=== PATIENT | male | born 1940 | race Hispanic/Latino ===

== ENCOUNTER → 2017-07-16 | Outpatient (CLI) | payer OTHER, MEDICARE ==
[~2017-07-16] MED LIST: ACET1TAB12 PO; CHLO25CA5 PO; ENOX40DI8 SQ; ERTA1VIA IV; FAMO-136 PO; FOLI1TAB15 PO; GUAIFDM PO; GUAIFDM120 PO; HYOS-28 PO; IPRA3AMP24 IH; LACT10SO PO; LIB25 PO; Lactulose PO; MAAL30 PO; MULT-1192 PO; MVIT PO; ONDA4TAB4 PO; THIA100T91 PO; THIAM100TB PO; TRAM50TA2 PO; TRAM50TA4 PO; [UNRECOGNIZED DRUG - CODE] PO; [UNRECOGNIZED DRUG - CODE] PO
[2017-07-16 11:40] LABS: BASOPHILS % (AUTO) 0.3 % (0.0-5.0); LYMPHOCYTES % (AUTO) 17.4 % (21.0-51.0); MEAN CORPUSCULAR HEMOGLOBIN 34.5 pg (27.0-33.0); MEAN CORPUSCULAR HGB CONC 34.8 g/dL (32.0-36.0); MEAN CORPUSCULAR VOLUME 99.2 fL (79-99); MONOCYTES % (AUTO) 10.3 % (3.0-13.0); PLATELET COUNT (AUTO) 99 K/uL (130-400); RED BLOOD CELL COUNT(AUTO) 4.23 MIL/uL (4.50-6.20); RED CELL DISTRIBUTION WIDTH 13.4 % (11.0-15.5); WHITE BLOOD COUNT (AUTO) 6.5 K/uL (4.8-10.8)
[2017-07-16 12:01] LABS: HEMOGLOBIN A1C 4.8 % (4.0-6.0)
[2017-07-16 12:11] LABS: ALBUMIN 3.9 g/dL (3.5-5.0); BILIRUBIN,DIRECT 0.2 mg/dL (0.0-0.3); BILIRUBIN,TOTAL 0.7 mg/dL (0.2-1.0); CREATININE 1.4 mg/dL (0.5-1.5); POTASSIUM 4.1 mmol/L (3.5-5.1); THYROID STIMULATING HORMONE 4.55 uIU/mL (0.36-3.74); TOTAL PROTEIN, SERUM 7.9 g/dL (6.0-8.3); URIC ACID 5.8 mg/dL (2.6-7.2)
== END | disposition home or self-care (01) ==
LOC: RAH 10:52
PROVIDERS: ATTEND Internal Medicine
DX: Z00.00 Encounter for general adult medical examination without abnormal findings (principal); Z12.5 Encounter for screening for malignant neoplasm of prostate; M47.892 Other spondylosis, cervical region; G95.89 Other specified diseases of spinal cord; I10 Essential (primary) hypertension; E03.9 Hypothyroidism, unspecified; E78.5 Hyperlipidemia, unspecified
CPT/HCPCS: 36415; 72050; 80053; 80061; 82043; 82248; 82570; 82607; 82746; 83036; 83970; 84153; 84154; 84443; 84550; 85025